=== PATIENT | male | born 1935 | race Caucasian/White ===

== ENCOUNTER 2017-01-17 19:31 | Inpatient (IN) | payer MEDICARE, BC ==
--- NOTE | ~2017-01-17 | DS ---
Discharge Summary [facility] [address] [facility] [place]. [address] NAME: HELEN GARCIA : 39 STATUS : ADM IN [facility]#: [id number] AGE: 81 ADM/REG DATE : 01/18/17 MR#: [id number] REPORT SERV DATE: 01/20/17 DICTATED BY: SHAGUFTA MORALES DATE: 01/20/17 REPORT STATUS : Draft TRANSCRIBED BY: MODL DATE: 01/20/17 ADMISSION DATE: 01/18/2017 DISCHARGE DATE: 01/20/2017 FINAL HOSPITAL DIAGNOSES: 1. Atrial fibrillation with rapid ventricular response, resolved with chronic Coumadin anticoagulation. 2. Pneumonia. 3. History of coronary artery disease. 4. Diabetes mellitus. CONSULTATIONS: Dr. Cristian CHI. PROCEDURES: Echocardiogram done on 01/20/2017 showing normal LV size, preserved EF of 55%, normal RV size and systolic function, biatrial enlargement, possible bioprosthetic homograft aortic valve with normal gradients, mild TR, mild pulmonary hypertension. Left atrial dimension was 4.6 cm. CURRENT PHYSICAL FINDINGS AND HISTORY OF PRESENT ILLNESS: Please see dictated H and P by Dr. Lyle. In brief, the patient is a 81-year-old male with the above medical history who presented with a complaint of extreme dyspnea while walking his dog. On evaluation here, he was noted to have an atrial fibrillation with RVR, pneumonia, and an elevated procalcitonin. Vital signs at the time of admission, temp was 98.6, he has been afebrile during his hospital stay. O2 requirements were 2 to 3 L. Blood pressure has been in the 130 average. His heart rate initially was in the low 100s/120s. He did receive Cardizem on two separate occasions and his heart rate has been averaging in the 70s to 80s. LABORATORY DATA: Procalcitonin was 19.68. Initial creatinine was 1.36, subsequent checks were 1.1 and 1.29. It appears his baseline is approximately 1.2 to 1.3. He had an initial PO4 of 1.4, this was corrected. Initial mag of 2.2. He had a troponin of 0.04; subsequent checks were 0.03 and 0.03. TSH was 2.6. BNP was 209. Lactate was 1.2. Initial white count was 16,000, subsequent was 12,000. He had a mild anemia at 11.9 and 35.2. Platelets were 139. INR on presentation was 2.6; subsequent checks were 2.7, 2.3, and 2.2. Strep antigen was negative. Legionella was negative. Blood cultures to date are negative. Chest x-ray showed a left lower lobe infiltrate. HOSPITAL COURSE: The patient was admitted. Home medications reviewed and ordered appropriately. He was given a Cardizem bolus initially which seemed to help his heart rate, so a drip was not initially started. Cultures were drawn. Antibiotics were started, Rocephin and Zithromax, and some IV fluids were given. He was also given DuoNeb. Serial INRs were followed. I saw him on the following morning. Electrolytes were repeated. Later in the day, he went back into RVR, so a Cardizem drip was started. Repeat labs were checked. Cardiology was consulted the following day. We were made aware that Dr. Martin does not staff [facility] and group fitness instructor of choice was consulted. Echocardiogram was done with the above findings. He was placed on p.o. Cardizem. The following morning, he was reassessed. He was stable on room air O2. He was ambulatory. His rate was relatively Discharge Summary [address] [address] NAME: HELEN GARCIA : 39 STATUS : ADM IN [facility]#: [id number] AGE: 81 ADM/REG DATE : 01/18/17 MR#: [id number] REPORT SERV DATE: 01/20/17 DICTATED BY: SHAGUFTA MORALES DATE: 01/20/17 REPORT STATUS : Draft TRANSCRIBED BY: JM DATE: 01/20/17 controlled. He was therapeutically anticoagulated. He was afebrile. He was relatively asymptomatic from his pneumonia. He has close family support and care in the home and was discharged in stable condition. He already has a followup appointment both with Dr. Martin and his PCP next week. I have asked him to keep those appointments. I would request that he get an INR check at that appointment since he will be on antibiotics and would request their discretion of restarting his DEVIKA inhibitor, which has been on hold here and his hydralazine since he has been started on Cardizem. Other medications will remain unchanged: Lipitor 20; Lasix 40; Lantus 10 at bedtime if blood sugar is above 150; Lopressor 50 b.i.d.; Coumadin 2 mg at bedtime; Humalog 5 with meals and Natural Tears. DICTATED BY: Shagufta Morales M.D. TLF/JM Shagufta Morales M.D. / [id number] CC: Stanley Camejo
--- NOTE | ~2017-01-17 | CN ---
Consultation Report [facility] [address] [place]. [address] NAME: HELEN GARCIA : 39 STATUS : ADM IN PAT#: [id number] AGE: 81 ADM/REG DATE : 01/18/17 MR#: [id number] REPORT SERV DATE: 01/20/17 DICTATED BY: JEAN PAUL BURK DATE: 01/19/17 REPORT STATUS : Draft TRANSCRIBED BY: MODL DATE: 01/19/17 CARDIOLOGY CONSULTATION DATE OF CONSULTATION: 01/19/2017 REASON FOR CONSULTATION: Regarding atrial fibrillation. HISTORY OF PRESENT ILLNESS: Mr. Garcia is a pleasant 81-year-old gentleman, admitted on 01/17/2017, with complaints of worsening shortness of breath. His chest x-ray suggested a left lobe pneumonia. At that time, he was noted to be in atrial fibrillation with rapid ventricular response and was started on IV Cardizem. The patient has a known history of atrial fibrillation and has seen Dr. Martin for this as well as other cardiology issues for a number of years. He has had paroxysmal atrial fibrillation. Often times, he does not feel the events but has had persistent atrial fibrillation as well, and underwent cardioversion for this last year. He has never been on an antiarrhythmic agent. He does take Coumadin for CVA prophylaxis associated with his atrial fibrillation. 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 He has had some episodes of congestive heart failure, which sound to be in and around the time of his valve replacement, but has not had any episodes more recently. The patient also has a history of stent placement to the LAD a number of years ago prior to the mitral valve replacement. He did not undergo bypass at the time of the mitral valve replacement. PAST MEDICAL HISTORY: 1. Notable for type 2 diabetes. 2. History of hiatal hernia. 3. History of atrial fibrillation, which has been both paroxysmal and persistent status post cardioversion a year ago. The patient has never been on an antiarrhythmic agent. He does take warfarin and is followed by his haircutter, Dr. Paul Martin. 4. History of mitral valve replacement, bioprosthetic valve in 2002. HOME MEDICATIONS: Include Lipitor, Lasix, Apresoline, insulin, lisinopril, metoprolol, and warfarin. FAMILY HISTORY: Noncontributory. Negative for premature coronary artery disease. SOCIAL HISTORY: 88-[id number]-[id number] tobacco, quit 15 years ago. Negative for alcohol or illicit drug use. He is . REVIEW OF SYSTEMS: As noted above. All other systems reviewed and negative. PHYSICAL EXAMINATION: Consultation Report [facility] [address] [place]. [address] NAME: HELEN GARCIA : 39 STATUS : ADM IN PAT#: [id number] AGE: 81 ADM/REG DATE : 01/18/17 MR#: [id number] REPORT SERV DATE: 01/20/17 DICTATED BY: JEAN PAUL BURK DATE: 01/19/17 REPORT STATUS : Draft TRANSCRIBED BY: JM DATE: 01/19/17 GENERAL: He is in no acute distress. VITAL SIGNS: His blood pressure is 136/76, pulse is 82 irregularly irregular, in atrial fibrillation, respirations are 16. HEENT: No icterus. Good dentition. NECK: Supple. No masses or thyromegaly LUNGS: Breathing comfortably. No rales or wheezes. COR: Note that he has an irregularly irregular rhythm. ABD: Soft, nondistended, nontender, no hepatosplenomegaly. EXT: No clubbing, cyanosis or edema. Peripheral pulses 2+/=bilaterally. SKIN: Warm and dry. No visible lesions. MS: Chest wall without deformity, no obvious clavicular fractures. NEURO/PSYCH: Oriented X3. No anxiety or depression. IMAGING PROCEDURE: His EKG from 01/17/2017, showed atrial fibrillation, ventricular response 112 beats per minute. Possible anterior infarct with Q-waves noted in V1 through V4. Nonspecific ST-T wave abnormalities. IMPRESSION: 1. The patient admitted with pneumonia and in this setting, has atrial fibrillation. The patient has a known history of atrial fibrillation and has required cardioversion about a year ago. He has followup with Dr. Paul Martin from [facility]. I would recommend that we try to rate control the patient. He is receiving IV Cardizem, which seems to be effective in rate control. He also takes Lopressor, which is a home medication for him. I would like to try to change from IV to p.o. Cardizem. We will continue his Coumadin. I would like to check an echocardiogram. The goal would be to rate control the atrial fibrillation and I would like to send him back to see Dr. Martin to see whether he wants to cardiovert the patient again, whether he would consider using antiarrhythmic agents plus cardioversion. The patient also would feel more comfortable if he was able to get back in touch with Dr. Martin to go over treatment options. 2. The patient does have some nonsustained wide-complex episodes. This could be nonsustained VT. I cannot exclude aberrancy. The rhythm is slightly irregular suggesting possibility for aberrancy. We are checking an echocardiogram to evaluate cardiac structure and function. I would not recommend any further workup or treatment for the nonsustained wide-complex tachycardia at this point in time. 3. History of coronary disease status post remote stent placement to the LAD number of years ago. His EKG does show some evidence for a prior anterior myocardial infarction. He seems to be stable at this point, denying any chest pain or chest discomfort. 4. History of bioprosthetic mitral valve replacement. This appears to be stable. Again, we will check an echocardiogram to make certain the mitral valve is functioning normally. Again, he has follow up with his primary haircutter, Dr. Martin in about a week, so we will try to get him back to see Dr. Martin at that time to go over any long- term treatment options for the patient. Consultation Report [address] [place]. [address] NAME: HELEN GARCIA : 39 STATUS : ADM IN [facility]#: [id number] AGE: 81 ADM/REG DATE : 01/18/17 MR#: [id number] REPORT SERV DATE: 01/20/17 DICTATED BY: JEAN PAUL BURK DATE: 01/19/17 REPORT STATUS : Draft TRANSCRIBED BY: MODKelton DATE: 01/19/17 [place]/JM Jean Paul Burk M.D. / [id number] CC: Stanley Camejo LEANN M.
--- NOTE | ~2017-01-17 | HP ---
History And Physical [facility] [id number] [place]. [address] NAME: HELEN GARCIA : 39 STATUS : ADM Vanessa PAT#: [id number] AGE: 81 ADM/REG DATE : 01/17/17 MR#: [id number] REPORT SERV DATE: 01/18/17 DICTATED BY: MASSIMO KRUEGER DATE: 01/18/17 REPORT STATUS : Draft TRANSCRIBED BY: MODL DATE: 01/18/17 DATE OF ADMISSION: 01/17/2017 CHIEF COMPLAINT: Feeling weak and shortness of breath. HISTORY OF PRESENT ILLNESS: This is a 81-year-old male with a history of atrial fibrillation, followed by Dr. Martin, his event planner, history of coronary artery disease and bypass grafting, who presents to the emergency room at [facility] with the above-mentioned complaint. History is obtained from the patient, his daughter, and grandson who are at bedside and reviewing data available on the nVoq system as well. According to available data, Mr. Garcia has been in his usual state of health until the day before yesterday evening. He was walking his dogs, going to feed them when he suddenly started noticed that he was very short of breath. He was having trouble walking with the dogs. He came back home, and since then, his breathing had progressively worsened, that the family was very concerned and decided to bring him to the emergency room. In the emergency room, upon arrival, he was in atrial fibrillation with a very rapid ventricular response requiring IV administration of Cardizem. This controlled his rate down to the 90s and further workup including a chest x-ray done in the emergency room showed he had a left lower lobe infiltrate consistent with pneumonia along with leukocytosis. He had a slight elevation of his troponin and also had acute kidney injury as well. Hospitalist Service is asked to admit him for further evaluation and treatment. At the time of my evaluation, he denied any chest pain, palpitations, or orthopnea. He insisted that he had never felt any racing of his heart prior to his presentation here. He denied any cough, hemoptysis, night sweats, or weight loss. He did feel some dizziness and weakness, but no history of recent falls or loss of consciousness. He did have an episode of feeling cold day before yesterday, but does not report any fever. He did have some nausea, but no vomiting or diarrhea. No other history of recent travel or exposures. No bleeding from anywhere. PAST MEDICAL HISTORY: Significant for history of coronary artery disease with CABG done by Dr. Herbert in the past, diabetes mellitus type 2, history of hiatal hernia as well. He has atrial fibrillation, on warfarin therapy, followed by Dr. Martin, his event planner. SOCIAL HISTORY: He has about [id number] history of smoking and has quit about 15 years ago. He denied alcohol use or recreational drug use. 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 FAMILY HISTORY: Noncontributory. MEDICATIONS: At home were reviewed by me in the chart today and reordered by me. REVIEW OF SYSTEMS: As in history of present illness. All other systems were reviewed in detail and are quite History And Physical [address] [address] NAME: HELEN GARCIA : 39 STATUS : ADM Vanessa PAT#: [id number] AGE: 81 ADM/REG DATE : 01/17/17 MR#: [id number] REPORT SERV DATE: 01/18/17 DICTATED BY: MASSIMO KRUEGER DATE: 01/18/17 REPORT STATUS : Draft TRANSCRIBED BY: JM DATE: 01/18/17 unremarkable. PHYSICAL EXAMINATION: GENERAL: This is a pleasant 81-year-old, not in any acute distress. He is alert, awake, oriented to time, place, and person. HEENT: His head is atraumatic, normocephalic. Pupils are equal, reacting to light, and accommodating. External ocular muscles are intact. Membranes are moist and pink. Sclerae are nonicteric. NECK: Supple with no jugular venous distention, lymphadenopathy, or thyromegaly. LUNGS: Clear to auscultation with no wheezes, rubs, or crackles. HEART: Heart sounds are irregularly irregular. There are no murmurs or gallops appreciated. ABDOMEN: Soft and nontender. Bowel sounds are present. EXTREMITIES: Show no cyanosis, clubbing, or edema. NEUROLOGIC: Grossly intact. No focal sensory or motor deficits. He is able to move all four extremities. VITAL SIGNS: Today, show a temperature of 98.6, pulse 117, respirations are 18 a minute, blood pressure is 141/67, oxygen saturations are 93% breathing 2 L of oxygen via nasal cannula. LABORATORY DATA: Reviewed on the nVoq system showed a sodium of 139, potassium 4.4, chloride 103, and CO2 of 29. BUN was 25 with a creatinine of 1.36 which is slightly above his baseline. His blood glucose was 125 today. His troponin today was 0.04 which is slightly up. [place] [address], hemoglobin was 13.5, hematocrit 40.2, and platelet count was 149,000. His prothrombin time today was 27.8 with an INR of 2.6. Urinalysis was not performed today. Films of the chest x-ray was reviewed by me on the PACS today and interpreted by me. Today's films were compared to prior films available on the PACS as well. Today's films showed normal bony architecture with sternotomy in the past. There is a left lower lobe infiltrate with possibly a small pleural effusion on the left. A 12-lead EKG done in the emergency room was reviewed and interpreted by me. There is atrial fibrillation at a rate of 112 with rapid ventricular response. IMPRESSION: 1. Atrial fibrillation with rapid ventricular response. 2. Left lower lobe pneumonia, possibly community-acquired. 3. Leukocytosis. 4. Acute kidney injury. 5. Mild elevation in troponin. 6. Coronary artery disease with coronary artery bypass graft. 7. Diabetes mellitus type 2. 8. Hiatal hernia. PLAN: We will admit Mr. Garcia to the Hospitalist Service with cardiac telemetry for a 24- hour observation period. We will obtain cultures and start him on empiric antibiotics for community-acquired pneumonia, maximize his bronchodilator treatments and supplemental oxygen History And Physical [address] [address] NAME: HELEN GARCIA : 39 STATUS : ADM Vanessa PAT#: [id number] AGE: 81 ADM/REG DATE : 01/17/17 MR#: [id number] REPORT SERV DATE: 01/18/17 DICTATED BY: MASSIMO KRUEGER DATE: 01/18/17 REPORT STATUS : Draft TRANSCRIBED BY: MODL DATE: 01/18/17 at this time. For his rapid ventricular response, due to his atrial fibrillation, he was given a dose of intravenous Cardizem in the ER and his heart rate had dropped down to below 100. We will continue to monitor him, and should he need it, we will start him on infusions. He is on warfarin which we will continue and check his prothrombin time and INR in the morning. We will also follow serial troponins while he is here to rule out any acute coronary syndrome, although I do believe it may be secondary to a demand ischemia. We will also check his thyroid function. We will start him on IV fluids for volume resuscitation, follow chemistry and other electrolytes in the morning along with a CBC. We will also place him on blood sugar control with NovoLog given subcutaneously per sliding scale. I have discussed the above plans with the patient. His questions were answered and he is agreeable to the above recommendations. Hospitalist Service will be following him during his stay here. /JM Massimo Krueger M.D. / [id number] CC: Stanley Camejo LEANN M.
[2017-01-17 20:52] LABS: BASOPHILS 0.1 %; BASOPHILS ABSOLUTE 0.02 10/3/uL (0.0-0.16); EOSINOPHILS 0.2 %; EOSINOPHILS ABSOLUTE 0.03 10/3/uL (0.0-0.53); HEMATOCRIT 40.2 % (40.0-51.0); HEMOGLOBIN 13.5 g/dL (13.6-17.8); IMMATURE GRANULOCYTES 0.7 %; IMMATURE GRANULOCYTES ABSOLUTE 0.11 10/3/uL (0.0-0.11); LYMPHOCYTES 9.3 %; LYMPHOCYTES ABSOLUTE 1.54 10/3/uL (0.67-4.30); MEAN CORPUS HGB CONC 33.6 g/dL (32.0-36.0); MEAN CORPUSCULAR HEMOGLOB 30.6 pg (26.0-34.0); MEAN CORPUSCULAR VOLUME 91.2 fL (80-100); MEAN PLATELET VOLUME 10.8 fL (9.2-13.0); MONOCYTES 9.9 %; MONOCYTES ABSOLUTE 1.64 10/3/uL (0.21-1.20); NEUTROPHILS 79.8 %; NEUTROPHILS ABSOLUTE 13.27 10/3/uL (2.02-8.40); PLATELET COUNT 149 10/3/uL (150-400); RBC DISTRIBUTION WIDTH 13.6 % (12.0-16.0); RED CELL COUNT 4.41 10/6/uL (4.7-6.1)
[2017-01-17 20:53] LABS: ER CBC TAT 0 Hrs 03 Mins; MANUAL DIFF NO %; WHITE BLOOD CELLS 16.6 10/3/uL (4.5-10.5)
[2017-01-17 21:05] LABS: INTERNATIONAL NORMAL RATI 2.6 UNITS (-)
[2017-01-17 21:06] LABS: PROTIME (NOT ORD) 27.8 SEC (12.0-14.5)
[2017-01-17 21:13] LABS: CALCIUM, SERUM 10.2 MG/DL (8.5-10.4); CHEST PAIN PROFILE TAT 0 Hrs 23 Mins; CHLORIDE, SERUM 103 MMOL/L (96-112); CO2 (CARBON DIOXIDE) 29 MMOL/L (24-34); CREATININE 1.36 MG/DL (0.70-1.30); GFR AFRICAN AMERICAN 57 ML/MIN (>=60); GFR NON AFRICAN AMERICAN 49 ML/MIN (>=60); GLUCOSE, SERUM 125 MG/DL (60-99); POTASSIUM, SERUM 4.4 MMOL/L (3.5-5.3); SODIUM, SERUM 139 MMOL/L (135-148); TROPONIN I 0.04 NG/ML (<0.05)
[2017-01-17 21:15] LABS: BUN (BLOOD UREA NITROGEN) 25 MG/DL (6-23)
[2017-01-17] MEDS ORDERED: LANTUS SC (23:41)
[2017-01-17] MEDS ORDERED: HUMALOG SC (23:42)
[2017-01-17] MEDS ORDERED: ZESTRIL40 MG PO (23:42)
[2017-01-17] MEDS ORDERED: LOP50 PO (23:42)
[2017-01-17] MEDS ORDERED: APRES10B PO (23:43)
[2017-01-17] MEDS ORDERED: LIPITOR20 PO (23:43)
[2017-01-17] MEDS ORDERED: C2 PO (23:43)
[2017-01-17] MEDS ORDERED: L40 PO (23:43)
[2017-01-17] MEDS ORDERED: TEARS PURE OPH (23:44)
[2017-01-18 08:59] LABS: BASOPHILS 0.2 %; BASOPHILS ABSOLUTE 0.02 10/3/uL (0.0-0.16); EOSINOPHILS 0.8 %; HEMATOCRIT 35.2 % (40.0-51.0); HEMOGLOBIN 11.9 g/dL (13.6-17.8); IMMATURE GRANULOCYTES 0.3 %; IMMATURE GRANULOCYTES ABSOLUTE 0.04 10/3/uL (0.0-0.11); LYMPHOCYTES 10.6 %; MANUAL DIFF NO %; MEAN CORPUS HGB CONC 33.8 g/dL (32.0-36.0); MEAN CORPUSCULAR HEMOGLOB 30.5 pg (26.0-34.0); MEAN CORPUSCULAR VOLUME 90.3 fL (80-100); MEAN PLATELET VOLUME 10.9 fL (9.2-13.0); MONOCYTES 9.4 %; MONOCYTES ABSOLUTE 1.15 10/3/uL (0.21-1.20); NEUTROPHILS 78.7 %; NEUTROPHILS ABSOLUTE 9.65 10/3/uL (2.02-8.40); PLATELET COUNT 139 10/3/uL (150-400); RBC DISTRIBUTION WIDTH 13.8 % (12.0-16.0); WHITE BLOOD CELLS 12.3 10/3/uL (4.5-10.5)
[2017-01-18 09:09] LABS: INTERNATIONAL NORMAL RATI 2.7 UNITS (-); PROTIME (NOT ORD) 28.5 SEC (12.0-14.5)
[2017-01-18 09:10] LABS: PARTIAL THROMBO TIME 60.4 SEC (22.5-37.2)
[2017-01-18 09:22] LABS: BUN (BLOOD UREA NITROGEN) 23 MG/DL (6-23); CHLORIDE, SERUM 109 MMOL/L (96-112); CO2 (CARBON DIOXIDE) 27 MMOL/L (24-34); GFR AFRICAN AMERICAN 74 ML/MIN (>=60); GFR NON AFRICAN AMERICAN 64 ML/MIN (>=60); LACTATE 1.2 MMOL/L (0.3-2.4); PHOSPHORUS, SERUM 1.4 MG/DL (2.5-4.5); POTASSIUM, SERUM 3.9 MMOL/L (3.5-5.3); SODIUM, SERUM 144 MMOL/L (135-148); TROPONIN I 0.03 NG/ML (<0.05)
[2017-01-18 09:23] LABS: CALCIUM, SERUM 8.9 MG/DL (8.5-10.4); CK-MB < 0.5 NG/ML; CPK 25 U/L (0-200); GLUCOSE, SERUM 96 MG/DL (60-99)
[2017-01-18 10:10] LABS: PROCALCITONIN 19.68 ng/mL (<0.5)
[2017-01-18 15:07] LABS: CPK 32 U/L (0-200); TROPONIN I 0.03 NG/ML (<0.05)
[2017-01-18 15:09] LABS: CK-MB 0.6 NG/ML
[2017-01-19 04:42] LABS: INTERNATIONAL NORMAL RATI 2.3 UNITS (-); PROTIME (NOT ORD) 25.2 SEC (12.0-14.5)
[2017-01-19 04:49] LABS: BUN (BLOOD UREA NITROGEN) 25 MG/DL (6-23); CALCIUM, SERUM 8.5 MG/DL (8.5-10.4); CHLORIDE, SERUM 110 MMOL/L (96-112); CO2 (CARBON DIOXIDE) 23 MMOL/L (24-34); CREATININE 1.29 MG/DL (0.70-1.30); GFR AFRICAN AMERICAN 61 ML/MIN (>=60); GFR NON AFRICAN AMERICAN 52 ML/MIN (>=60); SODIUM, SERUM 140 MMOL/L (135-148)
[2017-01-19 04:50] LABS: GLUCOSE, SERUM 124 MG/DL (60-99); PHOSPHORUS, SERUM 2.7 MG/DL (2.5-4.5); POTASSIUM, SERUM 4.2 MMOL/L (3.5-5.3)
[2017-01-20 04:54] LABS: INTERNATIONAL NORMAL RATI 2.2 UNITS (-); PROTIME (NOT ORD) 24.2 SEC (12.0-14.5)
[2017-01-20] MEDS ORDERED: OMNICEF300 PO (15:20)
[2017-01-20] MEDS ORDERED: CARDCD240 PO (15:20)
== END 2017-01-20 16:18 | disposition home or self-care (01) | DRG 308 ==
LOC: ER 19:31 → 5NO 20:00
PROVIDERS: Emergency Medicine; Internal Medicine; Internal Medicine Pulmonary Disease
DX: I48.1 Persistent atrial fibrillation (principal); J18.9 Pneumonia, unspecified organism; N17.9 Acute kidney failure, unspecified; I27.2 Other secondary pulmonary hypertension; E11.9 Type 2 diabetes mellitus without complications; I25.10 Atherosclerotic heart disease of native coronary artery without angina pectoris; Z79.4 Long term (current) use of insulin; Z79.01 Long term (current) use of anticoagulants; Z95.2 Presence of prosthetic heart valve; I48.0 Paroxysmal atrial fibrillation; Z87.891 Personal history of nicotine dependence; Z95.1 Presence of aortocoronary bypass graft; K44.9 Diaphragmatic hernia without obstruction or gangrene
CPT/HCPCS: 71020; 80048; 82550; 82553; 82962; 83605; 83735; 83880; 84100; 84145; 84443; 84484; 85025; 85610; 85730; 87040; 87449; 93005; 94640; 96374; 99285; A9270-GY; C8929; J0456; Q9957